=== PATIENT | female | born 1970 | race Hispanic/Latino ===

== ENCOUNTER → 2021-03-25 | Outpatient (CLI) | payer OTHER | END | disposition home or self-care (01) | LOC: OIH 10:08 | PROVIDERS: ATTEND Internal Medicine | DX: M47.816 Spondylosis without myelopathy or radiculopathy, lumbar region (principal); M25.78 Osteophyte, vertebrae; M19.91 Primary osteoarthritis, unspecified site | CPT/HCPCS: 72100 ==